=== PATIENT | male | born 1955 | race Caucasian/White ===

== ENCOUNTER → 2016-07-25 | Outpatient (CLI) | payer OTHER ==
[~2016-07-25] VITALS: Ht 182.9 cm; Wt 130.6 kg
[~2016-07-25] MED LIST: ALEVE220 M1 PO; AMLODIPINE-BEN1 EAC1 PO; ASPIRIN EC81 MG PO; FISH OIL 1,2001 EACH PO; MOBIC15 MG PO; PERCOCET 10-321 EACH PO; SIMVASTATIN10 MG PO; XARELTO10 MG PO
[2016-07-25 13:04] LABS: RED BLOOD COUNT 5.61 M/UL (4.20-5.50); WHITE BLOOD COUNT 5.8 K/UL (4.5-11.0)
[2016-07-25 13:21] LABS: BUN/CREATININE RATIO 19 (0-10)
== END ==
LOC: OPSV2 11:55
PROVIDERS: Orthopaedic Surgery
DX: Z01.812 Encounter for preprocedural laboratory examination (principal); Z01.810 Encounter for preprocedural cardiovascular examination; I10 Essential (primary) hypertension; M17.11 Unilateral primary osteoarthritis, right knee
CPT/HCPCS: 36415; 80048; 85025; 87081; 93005

== ENCOUNTER 2016-08-09 08:56 | Day surgery (SDC) | payer OTHER ==
[~2016-08-09] VITALS: Ht 182.9 cm; Wt 130.6 kg
[~2016-08-09 08:56] MED LIST changes: -PERCOCET 10-321 EACH PO; -XARELTO10 MG PO
[2016-08-09 11:27] LABS: BUN/CREATININE RATIO 27 (0-10)
[2016-08-10 06:36] LABS: HEMOGLOBIN 13.1 gm/dl (14.0-17.5); RED BLOOD COUNT 4.72 M/UL (4.20-5.50); WHITE BLOOD COUNT 8.9 K/UL (4.5-11.0)
[2016-08-10 06:42] LABS: BUN/CREATININE RATIO 19 (0-10)
[2016-08-10] MEDS ORDERED: PERCOCET 10-321 EACH PO (10:44)
[2016-08-10] MEDS ORDERED: XARELTO10 MG PO (10:44)
== END 2016-08-10 15:20 | disposition home or self-care (01) ==
LOC: OR 08:56 → M/S 17:00 → OR 08-10 15:20
PROVIDERS: Orthopaedic Surgery
PROC: 0SRC0L9 Replacement of Right Knee Joint with Medial Unicondylar Synthetic Substitute, Cemented, Open Approach (ICD-10-PCS; principal; 2016-08-09 11:30)
DX: M17.11 Unilateral primary osteoarthritis, right knee (principal); I10 Essential (primary) hypertension; E78.5 Hyperlipidemia, unspecified; G47.30 Sleep apnea, unspecified; M19.90 Unspecified osteoarthritis, unspecified site; Z98.41 Cataract extraction status, right eye; Z98.42 Cataract extraction status, left eye; Z79.82 Long term (current) use of aspirin; Z79.899 Other long term (current) drug therapy
CPT/HCPCS: 36415; 73560; 80048; 85025; 86850; 86900; 86901; 94660; 97110; 97116; 97530; 97535; C1713; C1776; J0690; J1100; J2250; J2405; J2795; J3010; J3370; J7030; J7120